=== PATIENT | male | born 1960 | race African-American/Black ===

== ENCOUNTER 2016-11-19 18:28 | Inpatient (IN) | payer OTHER ==
[2016-11-19 20:44] VITALS: BMI 32.0
--- NOTE | 2016-11-19 22:44 | HP ---
CIWA Score - CIWA Score Nausea/Vomitin-No Nausea/No Vomiting Muscle Tremors: 4-Moderate,w/Arms Extend Anxiety: 4-Mod. Anxious/Guarded Agitation: 4-Moderately Restless Paroxysmal Sweats: 2 Orientation: 0-Oriented Tacttile Disturbances: 0-None Auditory Disturbances: 0-None Visual Disturbances: 0-None Headache: 0-None Present CIWA-Ar Total Score: 14 Admission ROS BHS - HPI Chief Complaint: WITHDRAWAL SX'S Allergies/Adverse Reactions: Allergies Allergy/AdvReac Type Severity Reaction Status Date / Time No Known Allergies Allergy Verified 04/14/16 20:15 History of Present Illness: 56 Y.O. MALE WITH ALCOHOLISM/ COCAINE DEPENDENCE HERE FOR DETOX TXMENT. CLIENT IS KNOWN TO [facility]. LAST ADMIT 03/2016 Exam Limitations: No Limitations - Ebola screening Have you traveled outside of the country in the last 21 days: No Have you had contact with anyone from an Ebola affected area: No Have you been sick,other than usual withdrawal symptoms: No Do you have a fever: No - Review of Systems Constitutional: Malaise EENT: reports: Dental Problems (DENTURES) Respiratory: reports: Shortness of Breath Cardiac: reports: No Symptoms Reported GI: reports: No Symptoms Reported : reports: No Symptoms Reported Musculoskeletal: reports: No Symptoms Reported Integumentary: reports: No Symptoms Reported Neuro: reports: No Symptoms reported Endocrine: reports: No Symptoms Reported Hematology: reports: No Symptoms Reported Psychiatric: reports: No Sypmtoms Reported Other Systems: Reviewed and Negative Patient History - Patient Medical History Hx Anemia: No Hx Asthma: No Hx Chronic Obstructive Pulmonary Disease (COPD): No Hx Cancer: No Hx Cardiac Disorders: No Hx Congestive Heart Failure: No Hx Hypertension: No Hx Hypercholesterolemia: No Hx Pacemaker: No HX Cerebrovascular Accident: No Hx Seizures: No Hx Dementia: No Hx Diabetes: No Hx Gastrointestinal Disorders: No Hx Liver Disease: No Hx Genitourinary Disorders: No Hx Sexually Transmitted Disorders: No Hx Renal Disease (ESRD): No Hx Thyroid Disease: No Hx Human Immunodeficiency Virus (HIV): No Hx Hepatitis C: No Hx Depression: No Hx Suicide Attempt: No Hx Bipolar Disorder: No Hx Schizophrenia: Yes (RIPSERDAL) - Patient Surgical History Past Surgical History: No Hx Neurologic Surgery: No Hx Cataract Extraction: No Hx Cardiac Surgery: No Hx Lung Surgery: No Hx Breast Surgery: No Hx Breast Biopsy: No Hx Abdominal Surgery: No Hx Appendectomy: No Hx Cholecystectomy: No Hx Genitourinary Surgery: No Hx Section: No Hx Orthopedic Surgery: No - PPD History Previous Implant?: Yes Documented Results: Negative w/proof Implanted On Prior [facility] Admission?: No Date: 04/16/16 Results: 0MM PPD to be Administered?: No - Smoking Cessation Smoking history: Current every day smoker Have you smoked in the past 12 months: Yes Aproximately how many cigarettes per day: 7 Cigars Per Day: 0 Hx Chewing Tobacco Use: No Initiated information on smoking cessation: Yes 'Breaking Loose' booklet given: 11/19/16 - Substance & Tx. History Hx Alcohol Use: Yes Hx Substance Use: Yes Substance Use Type: Alcohol, Cocaine Hx Substance Use Treatment: Yes ([facility]) - Substances Abused BEER Route: Oral Frequency: Daily Amount used: 6-24 OZ Age of first use: 14 Date of Last Use: 11/19/16 COCAINE Route: Inhalation Frequency: 1-2 times per week Amount used: $50 Age of first use: 36 Date of Last Use: 11/18/16 Family Disease History - Family Disease History Family Disease History: Diabetes: Mother, Other: Father ( MVA) Admission Physical Exam S - Vital Signs Vital Signs: Vital Signs - 24 hr 11/19/16 20:42 Temperature 97.6 F Pulse Rate 89 Respiratory 18 Rate Blood Pressure 124/74 - Physical General Appearance: Yes: No Apparent Distress, Appropriately Dressed, Anxious HEENTM: Yes: EOMI, Normocephalic, [place], Pharynx Normal Respiratory: Yes: Chest Non-Tender, Lungs Clear, Normal Breath Sounds, No Respiratory Distress, No Accessory Muscle Use Neck: Yes: No masses,lesions,Nodules, Supple, Trachea in good position Breast: Yes: Breast Exam Deferred Cardiology: Yes: Regular Rhythm, Regular Rate, S1, S2 Abdominal: Yes: Normal Bowel Sounds, Non Tender Genitourinary: Yes: Within Normal Limits Back: Yes: Other (LARGE MASS TO UPPER BACK) Musculoskeletal: Yes: full range of Motion, Gait Steady Extremities: Yes: Normal Capillary Refill, Normal Range of Motion, Tremors Neurological: Yes: fuel technician II-XII NML intact, Fully Oriented, Alert, Motor Strength 5/5 Integumentary: Yes: Normal Color, Dry (FLAKY), Warm Lymphatic: Yes: Within Normal Limits - Diagnostic (1) Alcohol dependence with uncomplicated withdrawal Current Visit: Yes Status: Acute (2) Cocaine dependence, uncomplicated Current Visit: Yes Status: Chronic (3) Nicotine dependence unspecified, with withdrawal Current Visit: Yes Status: Chronic Qualifiers: Nicotine product type: cigarettes Qualified Code(s): F17.213 - Nicotine dependence, cigarettes, with withdrawal Cleared for Admission [facility] - Detox or Rehab [facility] Level of Care: Medically Managed Detox Regimen/Protocol: Librium S Breath Alcohol Content Breath Alcohol Content: 0 Urine Drug Screen - Results Drug Screen Negative: No Urine Drug Screen Results: [place]-Cocaine
[2016-11-19] MEDS ORDERED: IBUPROFEN 400 MG TABLET (FP) PO PRN (22:58)
[2016-11-19] MEDS ORDERED: hydrOXYzine PAMOATE 50 MG CAPSULE (FP) PO PRN (22:58)
[2016-11-19] MEDS ORDERED: diphenhydrAMINE HCL 50 MG CAPSULE PO PRN (22:58)
[2016-11-19] MEDS ORDERED: P-EPHED 60MG/TRIPROLIDI 2.5MG TABLET PO PRN (22:58)
[2016-11-19] MEDS ORDERED: chlordiazePOXIDE HCL 25 MG CAPSULE PO PRN (22:58)
[2016-11-19] MEDS ORDERED: MAGNESIUM HYDROX 2400MG/30ML ORAL SUSPENSION 30 ML CUP PO PRN (22:58)
[2016-11-19] MEDS ORDERED: MAGNESIUM CITRATE 300 ML BOTTLE PO PRN (22:58)
[2016-11-19] MEDS ORDERED: NICOTINE POLACRILEX 2 MG GUM BC PRN (22:58)
[2016-11-19] MEDS ORDERED: guaiFENesin/D-METHORPHAN HB 10 ML UNIT-DOSE CUPS PO PRN (22:58)
[2016-11-19] MEDS ORDERED: MAG HYDROX/AL HYDROX/SIMETH 30 ML UNIT-DOSE CUP PO PRN (22:58)
[2016-11-19] MEDS ORDERED: ACETAMINOPHEN 325 MG TABLET (FP) PO PRN (22:58)
[2016-11-19] MEDS ORDERED: LOPERAMIDE HCL 2 MG CAPSULE PO PRN (22:58)
[2016-11-19] MEDS ORDERED: MENTHOL/PHENOL 1 EACH UD MM PRN (22:58)
[2016-11-20] MEDS: chlordiazePOXIDE HCL 25 MG CAPSULE PO SCH ×5 (03:08→22:15)
[2016-11-20 10:02] LABS: MCH 28.1 pg (25.7-33.7); MCHC 32.5 g/dl (32.0-35.9); MEAN CELL VOLUME 86.5 fl (80-96); MEAN PLT VOLUME 8.3 fl (7.5-11.1); PLATELET COUNT 259 K/MM3 (134-434); RDW 14.1 % (11.9-15.9)
[2016-11-20 10:16] LABS: ALBUMIN 3.7 g/dl (3.4-5.0); CALCIUM 8.5 mg/dL (8.5-10.1)
[2016-11-20 10:24] LABS: BILIRUBIN,TOTAL 0.4 mg/dL (0.2-1.0); CREATININE 1.5 mg/dL (0.7-1.3); TOT PROT 6.2 g/dl (6.4-8.2)
[2016-11-20] MEDS: PRENATAL VITAMINS W/ FOLIC ACID TABLET (FP) PO SCH (11:02)
[2016-11-20] MEDS: NICOTINE 14 MG/24 HOURS TOPICAL PATCH TD SCH (11:02)
--- NOTE | 2016-11-20 13:02 | CONSULT ---
[facility] Psychiatric Consult - Data Date of interview: 11/20/16 Admission source: [facility] Identifying data: This is 56 years old male with no psychiatric hospitalization history intoxicated with Alcohol, Cocaine and Nicotine Substance Abuse History: - Smoking Cessation. Smoking history: Current every day smoker. Have you smoked in the past 12 months: Yes. Aproximately how many cigarettes per day: 7. Cigars Per Day: 0. Hx Chewing Tobacco Use: No. Initiated information on smoking cessation: Yes. 'Breaking Loose' booklet given : 11/19/16. - Substance & Tx. History. Hx Alcohol Use: Yes. Hx Substance Use : Yes. Substance Use Type: Alcohol, Cocaine. Hx Substance Use Treatment: Yes ( [facility]). - Substances Abused. BEER. Route: Oral. Frequency: Daily. Amount used: 6-24 OZ. Age of first use: 14. Date of Last Use: 11/19/16. COCAINE. Route: Inhalation. Frequency: 1-2 times per week. Amount used: $50. Age of first use: 36. Date of Last Use: 11/18/16 Medical History: Denies Psychiatric History: Patient reports historyof anxiety, insomnia, reportsa taking prior to admission: Risperdal 1mg po qhs Physical/Sexual Abuse/Trauma History: Denies Additional Comment: Risperdal 1mg po qhs Mental Status Exam - Mental Status Exam Alert and Oriented to: Person Cognitive Function: Fair Patient Appearance: Unkempt Mood: Sad Affect: Flat Patient Behavior: Sedated Speech Pattern: Delayed Voice Loudness: Normal Thought Process: Goal Oriented Thought Disorder: Being Controlled Hallucinations: Denies Suicidal Ideation: Denies Homicidal Ideation: Denies Insight/Judgement: Fair Sleep: Difficulty falling asleep Appetite: Fair Muscle strength/Tone: Normal Gait/Station: Normal Additional Comments: Risperdal 1mg po qhs Psychiatric Findings - Problem List ([place] 1, 2,3) (1) Alcohol dependence with uncomplicated withdrawal Current Visit: Yes Status: Acute (2) Cocaine dependence, uncomplicated Current Visit: Yes Status: Chronic (3) Nicotine dependence unspecified, with withdrawal Current Visit: Yes Status: Chronic Qualifiers: Nicotine product type: cigarettes Qualified Code(s): F17.213 - Nicotine dependence, cigarettes, with withdrawal (4) Drug-induced mood disorder Current Visit: Yes Status: Acute - Initial Treatment Plan Initial Treatment Plan: Risperdal 1mg po qhs
--- NOTE | 2016-11-20 15:22 | PN ---
S CIWA - CIWA Score Nausea/Vomitin Muscle Tremors: 2 Anxiety: 2 Agitation: 2 Paroxysmal Sweats: 2 Orientation: 0-Oriented Tacttile Disturbances: 1-Very Mild Itch/Numbness Auditory Disturbances: 0-None Visual Disturbances: 0-None Headache: 0-None Present CIWA-Ar Total Score: 11 S Progress Note (SOAP) Subjective: interrupted sleep, but better , shakes improved Objective: 11/20/16 15:20 Vital Signs Temperature 97.1 F L 11/20/16 14:38 Pulse Rate 89 11/20/16 14:38 Respiratory Rate 20 11/20/16 14:38 Blood Pressure 123/77 11/20/16 14:38 O2 Sat by Pulse Oximetry (%) Laboratory Tests 11/20/16 11/20/16 11/20/16 07:00 07:00 07:00 WBC 6.0 RBC 5.00 Hgb 14.1 Hct 43.2 MCV 86.5 MCHC 32.5 RDW 14.1 Plt Count 259 D MPV 8.3 Sodium 139 Potassium 4.2 Chloride 105 Carbon Dioxide 28 Anion Gap 6 L BUN 13 Creatinine 1.5 H Creat Clearance w eGFR 48.77 Random Glucose 92 Calcium 8.5 Total Bilirubin 0.4 AST 33 D ALT 37 Alkaline Phosphatase 96 Total Protein 6.2 L Albumin 3.7 RPR Titer Nonreactive pt aox3 lying in bed in nad Assessment: 11/20/16 15:20 withdrawl sx's elevated creatinine 11/20/16 15:21 Plan: cont. detox increase fluids d/c ag. products repeat [id number]
[2016-11-20 17:25] LABS: URINE APPEARANCE CLEAR; URINE BILIRUBIN NEGATIVE (NEGATIVE); URINE COLOR YELLOW; URINE GLUCOSE (UA) NEGATIVE (NEGATIVE); URINE KETONE NEGATIVE (NEGATIVE); URINE NITRITE NEGATIVE (NEGATIVE); URINE PROTEIN NEGATIVE (NEGATIVE); URINE UROBILINOGEN NEGATIVE E.U./dl (0.2-1.0)
[2016-11-20 17:26] LABS: URINE BLOOD 1+ (NEGATIVE); URINE LEUK ESTERASE 1+ (NEGATIVE)
[2016-11-20 17:40] LABS: URINE BACTERIA FEW /hpf (NONE SEEN); URINE MUCUS RARE; URINE RBC 1 /hpf (0-3); URINE WBC 16 /hpf (3-5)
[2016-11-20] MEDS: risperiDONE 1 MG TABLET (FP) PO SCH (22:15)
[2016-11-20] MEDS: THIAMINE HCL 100 MG TABLET (FP) PO SCH (22:15)
[2016-11-21] MEDS: chlordiazePOXIDE HCL 25 MG CAPSULE PO SCH ×3 (05:34→19:44)
[2016-11-21 10:10] LABS: CALCIUM 8.4 mg/dL (8.5-10.1); CREATININE 1.4 mg/dL (0.7-1.3)
[2016-11-21] MEDS: PRENATAL VITAMINS W/ FOLIC ACID TABLET (FP) PO SCH (10:49)
[2016-11-21] MEDS: NICOTINE 14 MG/24 HOURS TOPICAL PATCH TD SCH (10:51)
--- NOTE | 2016-11-21 11:47 | PN ---
[facility] CIWA - CIWA Score Nausea/Vomitin-No Nausea/No Vomiting Muscle Tremors: 3 Anxiety: 3 Agitation: 3 Paroxysmal Sweats: 3 Orientation: 0-Oriented Tacttile Disturbances: 0-None Auditory Disturbances: 0-None Visual Disturbances: 0-None Headache: 0-None Present CIWA-Ar Total Score: 12 S Progress Note (SOAP) Subjective: irritable agitation anxiety sweats interrupted sleep Objective: 11/21/16 11:47 Vital Signs Temperature 98.6 F 11/21/16 10:15 Pulse Rate 86 11/21/16 10:15 Respiratory Rate 18 11/21/16 10:15 Blood Pressure 114/68 11/21/16 10:15 O2 Sat by Pulse Oximetry (%) Laboratory Tests 11/20/16 11/20/16 11/20/16 07:00 07:00 07:00 WBC 6.0 RBC 5.00 Hgb 14.1 Hct 43.2 MCV 86.5 MCHC 32.5 RDW 14.1 Plt Count 259 D MPV 8.3 Sodium 139 Potassium 4.2 Chloride 105 Carbon Dioxide 28 Anion Gap 6 L BUN 13 Creatinine 1.5 H Creat Clearance w eGFR 48.77 Random Glucose 92 Calcium 8.5 Total Bilirubin 0.4 AST 33 D ALT 37 Alkaline Phosphatase 96 Total Protein 6.2 L Albumin 3.7 Urine Color Urine Appearance Urine pH Ur Specific [place] Urine Protein Urine Glucose (UA) Urine Ketones Urine Blood Urine Nitrite Urine Bilirubin Urine Urobilinogen Ur Leukocyte Esterase Urine RBC Urine WBC Ur Epithelial Cells Urine Bacteria Urine Mucus RPR Titer Nonreactive 11/20/16 11/21/16 15:00 07:00 WBC RBC Hgb Hct MCV MCHC RDW Plt Count MPV Sodium 141 Potassium 4.2 Chloride 106 Carbon Dioxide 31 Anion Gap 4 L BUN 11 Creatinine 1.4 H Creat Clearance w eGFR Random Glucose 115 H D Calcium 8.4 L Total Bilirubin AST ALT Alkaline Phosphatase Total Protein Albumin Urine Color Yellow Urine Appearance Clear Urine pH 5.0 D Ur Specific [place] 1.018 Urine Protein Negative Urine Glucose (UA) Negative Urine Ketones Negative Urine Blood 1+ H Urine Nitrite Negative Urine Bilirubin Negative Urine Urobilinogen Negative Ur Leukocyte Esterase 1+ H Urine RBC 1 Urine WBC 16 Ur Epithelial Cells Rare Urine Bacteria Few Urine Mucus Rare RPR Titer awake/alert ambulating no acute distress Assessment: 11/21/16 11:47 withdrawal sx Plan: continue detox increase fluids
[2016-11-21] MEDS: THIAMINE HCL 100 MG TABLET (FP) PO SCH (23:37)
[2016-11-21] MEDS: risperiDONE 1 MG TABLET (FP) PO SCH (23:37)
[2016-11-21] MEDS: chlordiazePOXIDE 5 MG CAPSULE PO SCH (23:37)
[2016-11-22] MEDS: chlordiazePOXIDE 5 MG CAPSULE PO SCH ×3 (05:39→17:56)
--- NOTE | 2016-11-22 10:31 | PN ---
S Progress Note (SOAP) Subjective: ALERT,IRRITABLE,ANXIOUS,INTERRUPTED SLEEP Objective: 11/22/16 10:30 Vital Signs Temperature 98.1 F 11/22/16 09:36 Pulse Rate 81 11/22/16 09:36 Respiratory Rate 18 11/22/16 09:36 Blood Pressure 114/79 11/22/16 09:36 O2 Sat by Pulse Oximetry (%) Assessment: 11/22/16 10:30 WITHDRAWAL SYMPTOM Plan: CONTINUE DETOX,
[2016-11-22] MEDS: PRENATAL VITAMINS W/ FOLIC ACID TABLET (FP) PO SCH (10:53)
[2016-11-22] MEDS: NICOTINE 14 MG/24 HOURS TOPICAL PATCH TD SCH (10:55)
--- NOTE | 2016-11-22 18:26 | PN ---
[facility] Progress Note Note: patient did not want to complete treatment,signed release ama,several attempts to convince patient to stay but unsuccessful, the weather is bad,snowing but patient still insist on leaving facility,signed release ama
--- NOTE | 2016-11-22 18:31 | DS ---
[facility] Detox Discharge Summary Admission Date: 11/19/16 Discharge Date: 11/22/16 - History Present History: Alcohol Dependence, Cocaine Dependence Additional Comments: patient did not want to completed treatment,insist on leaving the facility, several attempts by many people,myself,counselor,and director nursing service are unsuccessful,signed release ama Pertinent Past History: nicotine dependence - Physical Exam Results Vital Signs: Vital Signs Temperature 99.1 F 11/22/16 14:24 Pulse Rate 92 H 11/22/16 14:24 Respiratory Rate 18 11/22/16 14:24 Blood Pressure 123/76 11/22/16 14:24 O2 Sat by Pulse Oximetry (%) Pertinent Admission Physical Exam Findings: withdrawal symptom - Treatment Patient has Accepted a [facility] Ref[facility] - Medication Discharge Medications: Ambulatory Orders Risperidone [Risperdal -] 1 mg PO HS #30 tablet 11/20/16 - AMA Did Patient Leave Against Medical Advice: Yes
[2016-11-22 19:05] VITALS: BP 102/58; PULSE 87; TEMP 99.9
[2016-11-22] MEDS ORDERED: chlordiazePOXIDE HCL 10 MG CAPSULE PO SCH (23:00)
== END 2016-11-22 18:40 | disposition left against medical advice (07) | DRG 770 ==
LOC: YASAS 18:28 → Y6N 23:22
PROVIDERS: ADMIT Internal Medicine Addiction Medicine; ATTEND Internal Medicine Addiction Medicine
PROC: HZ2ZZZZ Detoxification Services for Substance Abuse Treatment (ICD-10-PCS; principal; 2016-11-19)
DX: F10.230 Alcohol dependence with withdrawal, uncomplicated (principal); F14.20 Cocaine dependence, uncomplicated; F17.210 Nicotine dependence, cigarettes, uncomplicated; F20.9 Schizophrenia, unspecified; F19.24 Other psychoactive substance dependence with psychoactive substance-induced mood disorder; R79.89 Other specified abnormal findings of blood chemistry
CPT/HCPCS: 36415; 80048; 80053; 81003; 81015; 85027; 86593; 93005; 93010; J2794